=== PATIENT | female | born 1950 | race Caucasian/White ===

== ENCOUNTER 2017-03-19 12:01 | Emergency (ER) | payer OTHER ==
[~2017-03-19] VITALS: Ht 162.6 cm; Wt 55.0 kg
[~2017-03-19 12:01] MED LIST: BLAC20TA PO; CALC600T10 PO; MULT-65 PO; VITA-83 PO; Z.0.NO CURRENT MEDS
[2017-03-19 12:03] VITALS: BP 184/105; PULSE 114; RESP 16; TEMP 98.3; O2SAT 99
--- NOTE | 2017-03-19 12:11 | PD ---
Physical Exam Time Seen by Provider: 12:07 Narrative 67 y/o female sent here by Dr. Eldridge for SOB, swelling in the legs for the past few weeks. hx of atrial fibrillation. Sent here to r/o PE according to pt. Vital signs reviewed. Seen at triage desk. Awaiting bed placement. Data Data Last Documented VS Vital Signs Date Time Temp Pulse Resp B/P Pulse Ox O2 Delivery O2 Flow Rate FiO2 03/19/17 12:03 98.3 114 16 184/105 99 MDM Medical Record Reviewed: Yes Supervised Visit with CHRISTIAN: Karan Chen Mar 19, 2017 12:10
--- NOTE | 2017-03-19 12:43 | PD ---
HPI Chief Complaint: Respiratory Symptoms Time Seen by Provider: 12:25 Travel History International Travel<30 days: No Contact w/Intl Traveler<30days: No Traveled to known affect area: No History of Present Illness HPI 67yo F was sent here for evaluation for possible PE from Stephen Eldridge PA-C at [facility] today. Pt states she decided to go a doctor for the first time in years after turning 67 and getting medicare. Pt has been sob for a few weeks and has a history of afib, bilateral DVT (9 years ago, not on any anticoagulation). States she trip and fell and hit edge of her left rib 2 months ago in the bathroom and has been feeling sob. Denies any fever, cough , chest pain, n/v, abdominal pain, focal weakness or numbness. Pt's blood pressure was markedly elevated and she said she probably has HTN but does not take any medications. [facility] Social History Alcohol Use: Yes Tobacco Use: Yes Substance Use: No Allergies-Medications (Allergen,Severity, Reaction): Coded Allergies: No Known Allergies (Verified , 03/19/17) Reported Meds & Prescriptions Reported Meds & Active Scripts Active Amlodipine (Amlodipine Besylate) 5 Mg Tab 5 Mg PO DAILY Reported Multi Vitamin Daily (Multiple Vitamin) 1 Tab Tab DAILY Calcium 600-D (Calcium Carbonate-Vitamin D) 600-400 Mg-Unit Tab 600 Tab PO BID Calcium Ascorbate (Ascorbate Calcium) 500 Mg Tablet DAILY [place] Multi-Symptom Me (Black Cohosh-Soy Isoflavones-M) 1 Cap BID Review of Systems Except as stated in HPI: all other systems reviewed are Neg Physical Exam Narrative GENERAL: 67yo F in mild distress. SKIN: Focused skin assessment warm/dry. HEAD: Atraumatic. Normocephalic. EYES: Pupils equal and round. No scleral icterus. No injection or drainage. ENT: No nasal bleeding or discharge. Mucous membranes pink and moist. NECK: Trachea midline. No JVD. CARDIOVASCULAR: Tachycardic in the low 100s. No murmur appreciated. RESPIRATORY: No accessory muscle use. Clear to auscultation. Breath sounds equal bilaterally. GASTROINTESTINAL: Abdomen soft, non-tender, nondistended. MUSCULOSKELETAL: No obvious deformities. No clubbing. No cyanosis. No edema. No calf tenderness. NEUROLOGICAL: Awake and alert. No obvious cranial nerve deficits. Motor grossly within normal limits. Normal speech. PSYCHIATRIC: Appropriate mood and affect; insight and judgment normal. Data Data Last Documented VS Vital Signs Date Time Temp Pulse Resp B/P Pulse Ox O2 Delivery O2 Flow Rate FiO2 03/19/17 13:21 107 18 164/103 98 Nasal Cannula 2 03/19/17 12:47 98.3 Orders Complete Blood Count With Diff (03/19/17 12:37) Basic Metabolic Panel (Bmp) (03/19/17 12:37) Prothrombin Time / Inr (Pt) (03/19/17 12:37) Act Partial Throm Time (Ptt) (03/19/17 12:37) B-Type Natriuretic Peptide (03/19/17 12:37) Troponin I (03/19/17 12:37) Ct Pulmonary Angiogram (03/19/17 ) Electrocardiogram (03/19/17 ) Hydralazine Inj (Apresoline Inj) (03/19/17 12:45) Iohexol 350 Inj (Omnipaque 350 Inj) (03/19/17 15:22) Labs Laboratory Tests Test 03/19/17 13:00 White Blood Count 6.5 TH/MM3 Red Blood Count 4.37 MIL/MM3 Hemoglobin 14.6 GM/DL Hematocrit 44.2 % Mean Corpuscular Volume 101.1 FL Mean Corpuscular Hemoglobin 33.5 PG Mean Corpuscular Hemoglobin 33.1 % Concent Red Cell Distribution Width 14.8 % Platelet Count 173 TH/MM3 Mean Platelet Volume 7.8 FL Neutrophils (%) (Auto) 77.6 % Lymphocytes (%) (Auto) 12.2 % Monocytes (%) (Auto) 8.1 % Eosinophils (%) (Auto) 0.2 % Basophils (%) (Auto) 1.9 % Neutrophils # (Auto) 5.0 TH/MM3 Lymphocytes # (Auto) 0.8 TH/MM3 Monocytes # (Auto) 0.5 TH/MM3 Eosinophils # (Auto) 0.0 TH/MM3 Basophils # (Auto) 0.1 TH/MM3 CBC Comment DIFF FINAL Differential Comment Prothrombin Time 11.1 SEC Prothromb Time International 1.0 RATIO Ratio Activated Partial 25.4 SEC Thromboplast Time Sodium Level 134 MEQ/L Potassium Level 3.9 MEQ/L Chloride Level 92 MEQ/L Carbon Dioxide Level 31.2 MEQ/L Anion Gap 11 MEQ/L Blood Urea Nitrogen 3 MG/DL Creatinine 0.46 MG/DL Estimat Glomerular Filtration 136 ML/MIN Rate Random Glucose 85 MG/DL Calcium Level 8.9 MG/DL Troponin I LESS THAN 0.02 NG/ML B-Type Natriuretic Peptide 286 PG/ML MDM Medical Decision Making Medical Screen Exam Complete: Yes Emergency Medical Condition: Yes Interpretation(s) EKG: NSR 97bpm. Normal axis. No ST segment elevation or depression. Differential Diagnosis PE vs. pneumonia vs. CHF vs. atypical ACS Narrative Course 67yo F sent here by PMD for evaluation of possible PE. Pt was hypertensive and given hydralazine 10mg IV with improvement of blood pressure. Labs reviewed, no leukocytosis. BNP mildly elevated at 286. Troponin negative. CT angio showed no evidence of pulmonary embolism. Pt denies any chest pain. States she feels fine and wants to go home. Pt is speaking in complete sentences and saturating at 95% on RA. Pt likely have HTN, will start her on amlodipine and have her follow up with PMD. Return precautions given. Diagnosis Primary Impression: Blood pressure elevated Patient Instructions: General Instructions Departure Forms: Tests/Procedures Additional Instructions: Please follow up with your primary care physician regarding your elevated blood pressure. Return to the ED if symptoms worsen. Med/Other Pt SpecificInfo: Prescription(s) given Scripts Amlodipine 5 Mg Tab5 Mg PO DAILY #30 TAB Ref 0 Prov:Yohana Geronimo DO 03/19/17 Disposition: 01 DISCHARGE HOME Condition: Stable Yohana Geronimo DO Mar 19, 2017 12:43 Yohana Geronimo DO Mar 19, 2017 12:43
[2017-03-19] MEDS ORDERED: hydrALAZINE HCL 20 MG/ML VIAL IV PUSH ONE (12:45)
[2017-03-19 12:47] VITALS: BP 177/113; PULSE 93; RESP 20; TEMP 98.3; O2SAT 94
[2017-03-19] MEDS ORDERED: CALCTAB5 PO (12:47)
[2017-03-19] MEDS ORDERED: MULT1TAB46 (12:47)
[2017-03-19] MEDS ORDERED: ASCO500T35 (12:47)
[2017-03-19] MEDS ORDERED: BLAC1CAP2 (12:47)
[2017-03-19 13:18] LABS: BASOPHIL # 0.1 TH/MM3 (0-0.2); BASOPHIL % 1.9 % (0.0-2.0); EOSINOPHIL % 0.2 % (0.0-4.0); HEMATOCRIT 44.2 % (35.0-46.0); HEMO FLAGS DIFF FINAL; LYMPH % 12.2 % (9.0-44.0); LYMPHOCYTE # 0.8 TH/MM3 (1.0-4.8); MEAN CELL VOLUME 101.1 FL (80.0-100.0); MEAN CORPUSCULAR HEMOGLOBIN 33.5 PG (27.0-34.0); MEAN CORPUSCULAR HGB CONC 33.1 % (32.0-36.0); MONO % 8.1 % (0.0-8.0); NEUT % 77.6 % (16.0-70.0); PLATELET COUNT 173 TH/MM3 (150-450); RED BLOOD COUNT 4.37 MIL/MM3 (4.00-5.30); RED CELL DISTRIBUTION WIDTH 14.8 % (11.6-17.2); WHITE BLOOD COUNT 6.5 TH/MM3 (4.0-11.0)
[2017-03-19 13:21] VITALS: BP 164/103; PULSE 107; RESP 18; O2SAT 98
[2017-03-19 13:28] LABS: APTT (PATIENT) 25.4 SEC (24.3-30.1); PROTHROMBIN TIME - PATIENT 11.1 SEC (9.8-11.6)
[2017-03-19 13:46] LABS: ANION GAP 11 MEQ/L (5-15); BICARBONATE 31.2 MEQ/L (21.0-32.0); BLOOD UREA NITROGEN 3 MG/DL (7-18); CHLORIDE 92 MEQ/L (98-107); GLOMERULAR FILTRATION RATE 136 ML/MIN (>89); POTASSIUM 3.9 MEQ/L (3.5-5.1); SODIUM (NA) 134 MEQ/L (136-145)
[2017-03-19] MEDS ORDERED: IOHEXOL 350 MG/ML 10 ML VIAL (for RAD DIAG) IV ONE (15:22)
--- NOTE | 2017-03-19 15:40 | RADRPT ---
EXAM DATE/TIME: 03/19/2017 15:20 [facility] COMPARISON: No previous studies available for comparison. INDICATIONS : Short of breath for two weeks. IV CONTRAST: 74 cc Omnipaque 350 (iohexol) IV RADIATION DOSE: 18.89 CTDIvol (mGy) MEDICAL HISTORY : AFIB SURGICAL HISTORY : None. ENCOUNTER: Initial ACUITY: 2 weeks PAIN SCALE: 3/10 LOCATION: Bilateral chest TECHNIQUE: Volumetric scanning of the chest was performed using a pulmonary embolism protocol MIP images were re constructed. Using automated exposure control and adjustment of the mA and/or kV according to patien t size, radiation dose was kept as low as reasonably achievable to obtain optimal diagnostic quality images. DICOM format image data is available electronically for review and comparison. Follow-up recommendations for incidentally detected pulmonary nodules are based at a minimum on nodul e size and patient risk factors according to Fleischner Society Guidelines. FINDINGS: PULMONARY ARTERIES: No filling defects are seen in the pulmonary arteries through the segmental level. LUNGS: There is mild probable atelectasis in the posterior lung bases bilaterally. PLEURAE: There is no pleural thickening or pleural effusion. MEDIASTINUM: There is good visualization of the great vessels of the middle mediastinum. No evidence of mediastin al or hilar adenopathy/mass. MUSCULOSKELETAL: Within normal limits for patient age. MISCELLANEOUS: There is nonspecific fatty tissue stranding in the axillary regions, chest wall and visualized upper abdomen. This may potentially represent soft tissue edema of undetermined etiology. CONCLUSION: No evidence of pulmonary embolism. Roberth Freeman MD on March 19, 2017 at 15:30 Board Certified Radiologist. This report was verified electronically.
[2017-03-19] MEDS ORDERED: AMLO5TAB2 PO (17:52)
--- NOTE | 2017-03-20 08:36 | EKG ---
Date Performed: 03/19/2017 Time Performed: 12:43:25 PTAGE: 67 years EKG: Sinus rhythm NORMAL ECG NO PREVIOUS TRACING DOCTOR: Chencho Celeste Interpretating Date/Time 03/20/2017 08:31:19
== END 2017-03-19 18:52 | disposition home or self-care (01) ==
LOC: NEPC 12:01
DX: R03.0 Elevated blood-pressure reading, without diagnosis of hypertension (principal); M79.89 Other specified soft tissue disorders; R00.0 Tachycardia, unspecified; I48.91 Unspecified atrial fibrillation; Z72.0 Tobacco use; Z86.718 Personal history of other venous thrombosis and embolism; Z79.899 Other long term (current) drug therapy
CPT/HCPCS: 71275; 80048; 83880; 84484; 85025; 85610; 85730; 93005; 96374; 99285; J0360; Q9967